=== PATIENT | female | born 1980 | race African-American/Black ===

== ENCOUNTER 2021-09-07 06:53 | Emergency (ER) | payer MEDICAID, OTHER ==
[~2021-09-07] VITALS: Ht 170.2 cm; Wt 90.9 kg
[~2021-09-07 06:53] MED LIST: BACL20TA PO; HYDR4 PO; PROM25 PO
[2021-09-07 07:29] VITALS: BP 129/85
== END 2021-09-07 09:16 | disposition home or self-care (01) ==
LOC: EMS 06:54
DX: N31.9 Neuromuscular dysfunction of bladder, unspecified (principal)
CPT/HCPCS: 51702; 99284; Z7502

== ENCOUNTER 2022-03-21 19:46 | Emergency (ER) | payer OTHER | END 2022-03-21 20:20 | disposition left against medical advice (07) | LOC: EMS 19:50 | DX: R55 Syncope and collapse (principal); Z53.21 Procedure and treatment not carried out due to patient leaving prior to being seen by health care provider ==